=== PATIENT | male | born 1975 | race Caucasian/White ===

== ENCOUNTER 2025-04-18 21:04 | Observation (INO) ==
[2025-04-18 22:01] LABS: Hematocrit (blood only) 40.8 % (42.0-52.0); Hemoglobin 14.6 g/dL (14.0-18.0); Immature Granulocytes # (auto) 0.02 K/uL (0.01-0.20); Immature Granulocytes % (auto) 0.3 %; Mean Corpuscular Hemoglobin 31.9 pg (25.0-34.0); Mean Corpuscular Volume 89.3 fL (80.0-100.0); Platelet Count 220 K/uL (130-400); RDW Standard Deviation 41.4 fL (36.4-46.3); Red Blood Count 4.57 M/uL (4.70-6.10); White Blood Count 6.87 K/ul (4.8-10.8)
[2025-04-18 22:04] LABS: Alanine Aminotransferase 42.0 U/L (7-52); Albumin Globulin Ratio 1.2 (0.9-2); Albumin Level 4.3 gm/dl (3.4-5.0); Alkaline Phosphatase 73.0 U/L (34-104); Anion Gap 10.0 (3-11); Bilirubin,Total 1.0 mg/dl (0.2-1.0); Blood Urea Nitrogen 9.0 mg/dl (6-23); Calcium 9.5 mg/dl (8.6-10.3); Carbon Dioxide 24.0 mmol/L (21-32); Chloride 104.0 mmol/L (98-107); Creatinine Clr Calc Pharmacy 107.4 ml/min; Globulin 3.7 gm/dl (2.5-4.0); Glucose 98.0 mg/dl (70-99(Fasting)); Lipase 30.0 U/L (11-82); Potassium 3.7 mmol/L (3.5-5.1); Sodium 138.0 mmol/L (136-145); Total Protein 8.0 gm/dl (6.0-8.3)
--- NOTE | 2025-04-18 22:53 | Emergency Department Note ---
History of Present Illness General Chief complaint: Chest Pain Stated complaint: Chest Pain, Hypertension Time Seen by Provider: 04/18/25 21:22 History of Present Illness This 49-year-old male presents ER complaining of chest pain and shortness of breath today. No prior heart disease. He does not smoke. No leg pain or swelling. Patient denies fever, chills, cough, congestion, flulike illness. Home Medications Medication Instructions Recorded Confirmed Type atorvastatin 10 mg tablet 10 mg PO DAILY 01/23/23 04/18/25 History lisinopril 20 mg tablet 20 mg PO DAILY 01/23/23 04/18/25 History Allergies Allergy/AdvReac Type Severity Reaction Status Date / Time No Known Allergies Allergy Verified 01/23/23 14:56 Past Med/Surg History Problem List (Updated 04/19/25 @ 00:35 by Mariola Schuler PA-C) Lyme disease (Acute) Chest pain (Acute) Vitamin D deficiency Nephrolithiasis Hypertension Medical History (Updated 04/19/25 @ 00:35 by Mariola Schuler PA-C) Testicle cancer Surgical History (Updated 11/24/22 @ 19:01 by Cuong Garcia) History of orchiectomy, unilateral History of shoulder surgery History of appendectomy Social History (Updated 01/23/23 @ 15:00 by Monique Douglas LPN) Smoking Status: Never smoker Tobacco Type: Smokeless Tobacco (Dip or Chew) Age Started Using Tobacco: 15; Second Hand Exposure: Yes; Do You Dip or Chew Tobacco: Yes; Hx Alcohol Use: Yes Alcohol type: beer, wine and hard liquor Alcohol Intake Frequency Comment: 6 drinks a day Hx Substance Use: No Preferred Language: Colombian Communication Ability: Effective Beliefs That Will Affect Care: None marital status: Life Partner Current Living Situation Comment: w/ partner current occupational status: employed Feels Safe at Home: Yes Review of Systems A total of 10 systems reviewed and were otherwise negative Physical Exam Vital Signs Vital Signs - 24 hr 04/18/25 21:17 04/18/25 21:17 04/18/25 21:30 Temperature 36.9 C Temperature Source Oral Pulse Rate 84 85 Pulse Rate from SpO2 Sensor 84 Pulse Rhythm Regular Pulse Strength Normal Respiratory Rate 14 23 Respiratory Effort / Characteristics Non-Labored Spontaneous Non-Labored Spontaneous Respiratory Depth Normal Normal Respiratory Pattern Regular Blood Pressure 183/113 H Blood Pressure Mean 136 Blood Pressure Position Lying Pulse Oximetry 97 96 Oxygen Delivery Method Room Air Room Air Sepsis Recent Fever Within 48 Hours No Sepsis New/Unexplained Change in Mental Status N/A Sepsis Action Taken by Nursing No Action Required 04/18/25 21:40 04/18/25 21:45 04/18/25 21:47 Temperature Temperature Source Pulse Rate 81 82 Pulse Rate from SpO2 Sensor 81 Pulse Rhythm Pulse Strength Respiratory Rate 20 Respiratory Effort / Characteristics Respiratory Depth Respiratory Pattern Blood Pressure 167/110 H 167/110 H Blood Pressure Mean 129 122 Blood Pressure Position Pulse Oximetry 97 Oxygen Delivery Method Sepsis Recent Fever Within 48 Hours Sepsis New/Unexplained Change in Mental Status Sepsis Action Taken by Nursing 04/18/25 21:47 04/18/25 21:47 04/18/25 22:00 Temperature Temperature Source Pulse Rate 79 Pulse Rate from SpO2 Sensor 78 Pulse Rhythm Pulse Strength Respiratory Rate 23 Respiratory Effort / Characteristics Respiratory Depth Respiratory Pattern Blood Pressure 167/110 H 167/110 H Blood Pressure Mean 122 122 Blood Pressure Position Pulse Oximetry 96 Oxygen Delivery Method Sepsis Recent Fever Within 48 Hours Sepsis New/Unexplained Change in Mental Status Sepsis Action Taken by Nursing 04/18/25 22:00 04/18/25 22:00 04/18/25 22:00 Temperature Temperature Source Pulse Rate Pulse Rate from SpO2 Sensor Pulse Rhythm Pulse Strength Respiratory Rate Respiratory Effort / Characteristics Respiratory Depth Respiratory Pattern Blood Pressure 170/109 H 170/109 H 170/109 H Blood Pressure Mean 123 123 123 Blood Pressure Position Pulse Oximetry Oxygen Delivery Method Sepsis Recent Fever Within 48 Hours Sepsis New/Unexplained Change in Mental Status Sepsis Action Taken by Nursing 04/18/25 22:00 04/18/25 22:00 04/18/25 22:30 Temperature Temperature Source Pulse Rate 74 Pulse Rate from SpO2 Sensor Pulse Rhythm Pulse Strength Respiratory Rate 17 Respiratory Effort / Characteristics Respiratory Depth Respiratory Pattern Blood Pressure 170/109 H 170/109 H Blood Pressure Mean 123 123 Blood Pressure Position Pulse Oximetry Oxygen Delivery Method Sepsis Recent Fever Within 48 Hours Sepsis New/Unexplained Change in Mental Status Sepsis Action Taken by Nursing 04/18/25 22:51 04/18/25 22:53 04/18/25 22:53 Temperature Temperature Source Pulse Rate 69 Pulse Rate from SpO2 Sensor 70 Pulse Rhythm Pulse Strength Respiratory Rate 20 Respiratory Effort / Characteristics Respiratory Depth Respiratory Pattern Blood Pressure 177/106 H 177/106 H Blood Pressure Mean 123 123 Blood Pressure Position Pulse Oximetry 97 Oxygen Delivery Method Sepsis Recent Fever Within 48 Hours Sepsis New/Unexplained Change in Mental Status Sepsis Action Taken by Nursing 04/18/25 22:53 04/18/25 22:53 04/18/25 22:53 Temperature Temperature Source Pulse Rate Pulse Rate from SpO2 Sensor Pulse Rhythm Pulse Strength Respiratory Rate Respiratory Effort / Characteristics Respiratory Depth Respiratory Pattern Blood Pressure 177/106 H 177/106 H 177/106 H Blood Pressure Mean 123 123 123 Blood Pressure Position Pulse Oximetry Oxygen Delivery Method Sepsis Recent Fever Within 48 Hours Sepsis New/Unexplained Change in Mental Status Sepsis Action Taken by Nursing 04/18/25 23:00 04/18/25 23:00 04/18/25 23:00 Temperature Temperature Source Pulse Rate Pulse Rate from SpO2 Sensor Pulse Rhythm Pulse Strength Respiratory Rate Respiratory Effort / Characteristics Respiratory Depth Respiratory Pattern Blood Pressure 156/105 H 156/105 H 156/105 H Blood Pressure Mean 122 122 122 Blood Pressure Position Pulse Oximetry Oxygen Delivery Method Sepsis Recent Fever Within 48 Hours Sepsis New/Unexplained Change in Mental Status Sepsis Action Taken by Nursing 04/18/25 23:00 04/18/25 23:00 04/18/25 23:30 Temperature Temperature Source Pulse Rate 73 66 Pulse Rate from SpO2 Sensor 71 66 Pulse Rhythm Pulse Strength Respiratory Rate 18 22 Respiratory Effort / Characteristics Respiratory Depth Respiratory Pattern Blood Pressure 156/105 H 156/105 H 166/100 H Blood Pressure Mean 122 122 122 Blood Pressure Position Pulse Oximetry 98 97 Oxygen Delivery Method Room Air Room Air Sepsis Recent Fever Within 48 Hours Sepsis New/Unexplained Change in Mental Status Sepsis Action Taken by Nursing 04/18/25 23:50 04/19/25 00:00 04/19/25 00:30 Temperature Temperature Source Pulse Rate 65 66 60 Pulse Rate from SpO2 Sensor 65 66 60 Pulse Rhythm Pulse Strength Respiratory Rate 20 16 20 Respiratory Effort / Characteristics Respiratory Depth Respiratory Pattern Blood Pressure 162/108 H 166/100 H 158/93 H Blood Pressure Mean 126 122 114 Blood Pressure Position Pulse Oximetry 97 95 97 Oxygen Delivery Method Room Air Room Air Room Air Sepsis Recent Fever Within 48 Hours Sepsis New/Unexplained Change in Mental Status Sepsis Action Taken by Nursing 04/19/25 01:00 Temperature Temperature Source Pulse Rate 67 Pulse Rate from SpO2 Sensor 68 Pulse Rhythm Pulse Strength Respiratory Rate 19 Respiratory Effort / Characteristics Respiratory Depth Respiratory Pattern Blood Pressure 183/114 H Blood Pressure Mean 137 Blood Pressure Position Pulse Oximetry 97 Oxygen Delivery Method Room Air Sepsis Recent Fever Within 48 Hours Sepsis New/Unexplained Change in Mental Status Sepsis Action Taken by Nursing VITALS: Vitals are noted on the nurse's note and reviewed by myself. Vital signs stable. GENERAL: Pleasant male, in no acute distress, nondiaphoretic, well-developed well-nourished. SKIN: Capillary reflex less than 2 seconds. HEENT: Normocephalic. PERRLA. EOMI. Nares patent. Mucous membranes moist. Neck is supple without nuchal rigidity. HEART: Regular rate and rhythm LUNGS: Clear to auscultation bilaterally without wheezes, rales or rhonchi. No retractions or accessory muscle use. ABDOMEN: Positive bowel sounds x 4. Normal tympanic percussion. Soft, nontender, without masses or organomegaly. Poe sign negative. No guarding or rebound tenderness. no CVA tenderness MUSCULOSKELETAL: No gross musculoskeletal defects. NEURO: Patient was alert and oriented to person place and time. No focal neurological deficits. Course Administered Medications Discontinued Medications Acetaminophen (Ofirmev) 1,000 mg in 100 mls @ 400 mls/hr IV NOW STA Stop: 04/19/25 00:05 Last Infusion: 04/19/25 00:22 Dose: Infused Documented By: Admin: 04/18/25 23:57 Dose: 400 mls/hr Documented By: ENMA Famotidine (Pepcid 20mg Iv Push) 20 mg in 5 mls @ 2.5 mls/min IV NOW STA Stop: 04/19/25 01:00 Last Admin: 04/19/25 01:05 Dose: 2.5 mls/min Documented By: ENMA Medical Decision Making Medical Records Attestation: I reviewed the patient's medical records. Home Medications Current Medication List: was personally reviewed by me Laboratory Data Attestation: I reviewed the patient's lab results. 04/18/25 21:18 04/18/25 21:18 Lab Results 04/18/25 04/18/25 Range/Units 21:18 23:00 WBC 6.87 (4.8-10.8) K/ul RBC 4.57 L (4.70-6.10) M/uL Hgb 14.6 (14.0-18.0) g/dL Hct 40.8 L (42.0-52.0) % MCV 89.3 (80.0-100.0) fL MCH 31.9 (25.0-34.0) pg MCHC 35.8 (32.0-36.0) g/dL RDW Std Deviation 41.4 (36.4-46.3) fL RDW Coeff of Daquan 12.7 (11.5-14.5) % Plt Count 220 (130-400) K/uL MPV 9.7 (9.4-12.4) fL Immature Gran % (Auto) 0.3 % Neut % (Auto) 68.6 % Lymph % (Auto) 20.8 % Hood % (Auto) 8.7 % Eos % (Auto) 1.0 % Baso % (Auto) 0.6 % Neut # (Auto) 4.71 (1.40-6.50) K/uL Lymph # (Auto) 1.43 (1.20-3.40) K/uL Hood # (Auto) 0.60 H (0.11-0.59) K/uL Eos # (Auto) 0.07 (0.00-0.50) K/uL Baso # (Auto) 0.04 (0.00-0.20) K/uL Immature Gran # (Auto) 0.02 (0.01-0.20) K/uL D-Dimer 190 (0-500) ug/L FEU Sodium 138 (136-145) mmol/L Potassium 3.7 (3.5-5.1) mmol/L Chloride 104 (98-107) mmol/L Carbon Dioxide 24 (21-32) mmol/L Anion Gap 10 (3-11) BUN 9 (6-23) mg/dl Creatinine 0.99 (0.6-1.4) mg/dl Est Cr Clr Drug Dosing 107.4 ml/min eGFR 92.80 BUN/Creatinine Ratio 9.1 L (10-20) Glucose 98 (70-99(Fasting)) mg/dl Calcium 9.5 (8.6-10.3) mg/dl Total Bilirubin 1.0 (0.2-1.0) mg/dl AST 45 H (13-39) U/L ALT 42 (7-52) U/L Alkaline Phosphatase 73 (34-104) U/L Troponin I High Sens 14.0 12.6 (0-20) pg/ml Total Protein 8.0 (6.0-8.3) gm/dl Albumin 4.3 (3.4-5.0) gm/dl Globulin 3.7 (2.5-4.0) gm/dl Albumin/Globulin Ratio 1.2 (0.9-2) Lipase 30 (11-82) U/L Lyme Disease Screen Equivocal H (Negative) Lyme Tier 2 IgG Confirm Positive H (Negative) Lyme Tier 2 IgM Confirm Negative (Negative) Imaging Data Attestation: I personally reviewed and interpreted this imaging study as follows: Radiologist's Impression: Chest X-Ray 04/18/25 21:20 Exam(s): XR CXR 1 VIEW EXAM: XR Chest, 1 View CLINICAL HISTORY: Reason for exam: Chest pain, nonspecific. TECHNIQUE: Frontal view of the chest. COMPARISON: No relevant prior studies available. FINDINGS: Lungs: No consolidation. No overt edema. Pleural space: No pleural effusion. No pneumothorax. Heart: Unremarkable. No cardiomegaly. IMPRESSION: Unremarkable chest x-ray. Electronically signed by: Steve Yoder MD 04/18/25 23:23 PM [facility] Narrative Prior records/ancillary studies reviewed. Triage Nursing notes reviewed. Additional history obtained from nursing. The patient's history was concerning for chest pain. Differential diagnosis: Etiologies such as cardiac ischemia, aortic dissection, pulmonary embolism, pneumonia, pneumothorax, musculoskeletal, infections, pericarditis, myocarditis, esophageal rupture, gastrointestinal, as well as others were entertained. Physical examination: As above. ER treatment provided: An order was placed for continuous cardiac monitoring. The monitor shows a rate of 60-100 with a sinus rhythm per my interpretation. Patient was observed EMS gave aspirin and nitroglycerin On reassessment the patient felt better. Diagnostic interpretation by me: #1 the electrocardiogram was negative for pathologic change. Ordered for chest pain EKG: Normal sinus, normal intervals, no acute ST-T wave changes. Impression normal sinus rhythm independently interpreted by myself I think arrhythmia is unlikely. EKG shows normal sinus rhythm with no interval abnormalities such as QT prolongation or WPW. There are no findings to suggest Brugada syndrome. Cardiac monitoring in the emergency department reveals no tachycardic or bradycardic dysrhythmia. Hypertrophic cardiomyopathy was considered but there are no clear historical elements pointing toward this. EKG is not suggestive. The QRS voltage is not extremely large and there are no suggestive Q waves. #2: EKG ordered for chest pain EKG: Normal sinus, T wave version noted in lead III. No ST elevation. Impression normal sinus rhythm with nonspecific T wave changes independent interpreted by myself The labs Independently Interpreted by myself revealed 2 negative troponins, negative D-dimer Patient requested a Lyme's test as he was worried he might have an acute infection. The equivocal screening test was positive and the acute phase reactant was negative. Patient had Lyme's in the summer so most likely the IgG is positive from this. Patient would like to follow-up with PCP for this and does not want to start doxycycline. Imaging studies: Chest x-ray with no acute consolidation, pneumothorax or free air per my independent interpretation HEART SCORE: Hx: high/mod/low suspicion: 0 ECG: ST depression/nonspecific changes/normal: 1 Age: Greater than 65/45-64/less than 45: 1 Risk factors: (Hypertension, hyperlipidemia, diabetes, coronary disease, tobacco use, cocaine use): 2 Troponin: Greater than 2 times normal limits/1-2 times normal limits/normal: 0 Total: 4 Consultation: Medicine was consulted and the case was discussed. Patient will be admitted to the medical service. Exam and history seen consistent chest pain with unclear etiology. Patient developed another episode of chest pain while at time of discharge. Repeat EKG still showed some subtle changes so patient was evaluated for admission. Medicine was consulted and the case is discussed. He will be evaluated for admission. Patient is agreeable. The chart was completed utilizing [employer]umistic Speech voice recognition software. Grammatical errors, random word insertions, pronoun errors, and incomplete sentences are an occassional consequence of this system due to software limitations, ambient noise, and hardware issues. Any formal questions or concerns about the content, text, or information contained within the body of this dictation should be directly addressed to the physician physician assistant for clarification. Impression & Plan Chest pain, Lyme disease Discharge Plan Visit Data Chief Complaint: Chest Pain Stated Complaint: Chest Pain, Hypertension ED Provider: Regulo Ramsey ED Midlevel Provider: Mariola Schuler Discharge Problem: Chest pain, Lyme disease Patient Disposition: Being Evaluated by Hospitalist Condition: Good Discharge Instructions Krames/Other Patient Handouts: ED [facility] Chest Pain Activity Restrictions/Additional Instructions: Ibuprofen(Motrin, Advil) may be used for fever or pain. Use 400mg every six hours as needed. Take with food. Avoid using more than 1600mg in a 24 hour period. Do not use 1600mg per day for more than three consecutive days without physician direction. Prolonged inappropriate use can lead to stomach upset or ulcers. (AND/OR) Acetaminophen(Tylenol) may be used for fever or pain. Use 1000mg every six hours as needed. Avoid using more than 3000mg in a 24 hour period. Rest and drink plenty of fluids as tolerated. Continue current medications. Avoid strenuous activities and anything that worsens your pain. Resume normal activities once your symptoms resolve. Return to the ER immediately for worsening or persistent chest pain, abdominal pain, vomiting, fevers, chest pains, difficulty breathing, worsening of your condition, or as needed. Follow up with your primary physician in 2-3 days for a recheck of your current condition. Forms Stand Alone Forms: Work/School Release (ED), Important Visit Information Prescriptions Prescriptions: No Action atorvastatin 10 mg tablet 10 mg PO DAILY lisinopril 20 mg tablet 20 mg PO DAILY Referrals Referrals: PCP,NO [Primary Care Provider] - Discharge Problem: Chest pain Qualifiers: Chest pain type: unspecified Qualified Code(s): R07.9 - Chest pain, unspecified
--- NOTE | 2025-04-18 23:24 | XRay Report ---
Exam(s): XR CXR 1 VIEW EXAM: XR Chest, 1 View CLINICAL HISTORY: Reason for exam: Chest pain, nonspecific. TECHNIQUE: Frontal view of the chest. COMPARISON: No relevant prior studies available. FINDINGS: Lungs: No consolidation. No overt edema. Pleural space: No pleural effusion. No pneumothorax. Heart: Unremarkable. No cardiomegaly. IMPRESSION: Unremarkable chest x-ray. Electronically signed by: Steve Yoder MD 04/18/25 23:23 PM
[2025-04-18 23:50] LABS: Lyme Screen Rflx Confirmation Equivocal (Negative)
[2025-04-18] MEDS: ACETAMINOPHEN 1,000 MG/100 ML VIAL IV STA (23:57)
[2025-04-19 00:32] LABS: Lyme Ab IgG 2nd Tier Confirm Positive (Negative)
[2025-04-19 00:33] LABS: Lyme Ab IgM 2nd Tier Confirm Negative (Negative)
[2025-04-19] MEDS: FAMOTIDINE 20MG IV PUSH 20 MG/5 ML SYR IV STA (01:05)
[2025-04-19] MEDS: NITROGLYCERIN SL 0.4 MG/TAB TAB SL PRN (01:15)
--- NOTE | 2025-04-19 03:59 | History & Physical Report ---
Date of Service April 19, 2025 Assessment & Plan (1) Chest pain: Plan: 49-year-old male with past medical history significant for hypertension, hyperlipidemia, metabolic syndrome, chews tobacco, testicular cancer status post left orchiectomy presents with chest pain. Patient woke up in the morning with chest pain. He took his blood pressure medication and his pain subsided. But his blood pressure is going up and down. At one point his blood pressure was in 190s when he decided come to the ER. In the ER his EKG and 2 sets of troponin negative and and was planned to discharge but patient again had some chest discomfort and we are called for admission. Patient says he is still has mild discomfort in the chest. Denies any headache. No runny nose or sore throat. Occasional dry cough. No shortness of breath. No nausea. No abdominal pain. Normal bowel and bladder movements. In January his PCP added amlodipine for blood pressure control. Patient was treated for Lyme disease in the summer. Patient asked ER to check for Lyme. Lyme Ig G came back positive but IgM negative. Patient to follow-up with PCP for confirmation of Lyme IgG meanwhile patient is okay to take doxycycline. Chest pain EKG no acute findings 2 sets of troponin negative Will follow serial cardiac enzymes and echo Observation med/telemetry Cardiac consult in a.m. for further recommendation Hypertension Seems uncontrolled Continue home amlodipine, lisinopril and hydrochlorothiazide iv labetalol prn. required a dose of iv labetalol Will monitor Hyperlipidemia On statin Chews tobacco Counseling Alcoholism Drinks 2-4 beers daily Says he wont get alcohol withdrawal Will give a dose of IV thiamine and folic acid Counseling will monitor Lyme's disease Treated in the summer Currently Lyme test IgM. negative but IgG positive Have to wait for confirmation Follow-up with PCP Meanwhile empiric doxycycline DVT prophylaxis SCD Disposition Observation med/telemetry Full code. History of Present Illness Chief Complaint: Chest pain Primary Care Provider: NO PCP 49-year-old male with past medical history significant for hypertension, hyperlipidemia, metabolic syndrome, chews tobacco, testicular cancer status post left orchiectomy presents with chest pain. Patient woke up in the morning with chest pain. He took his blood pressure medication and his pain subsided. But his blood pressure is going up and down. At one point his blood pressure was in 190s when he decided come to the ER. In the ER his EKG and 2 sets of troponin negative and and was planned to discharge but patient again had some chest discomfort and we are called for admission. Patient says he is still has mild discomfort in the chest. Denies any headache. No runny nose or sore throat. Occasional dry cough. No shortness of breath. No nausea. No abdominal pain. Normal bowel and bladder movements. In January his PCP added amlodipine for blood pressure control. Patient was treated for Lyme disease in the summer. Patient asked ER to check for Lyme. Lyme Ig G came back positive but IgM negative. Patient to follow-up with PCP for confirmation of Lyme IgG meanwhile patient is okay to take doxycycline. Past medical history. As mentioned above. Past surgical history. Cardiac cath in 2013. Partial orchiectomy. Appendectomy. Social history. Chews tobacco. Alcohol 2-4 beers every day. No drug use. Family history. Father had prostate cancer. Hypertension. Mother had breast cancer. Diabetes. Sister had breast cancer. Brother has hypertension. Allergies Allergy/AdvReac Type Severity Reaction Status Date / Time No Known Allergies Allergy Verified 01/23/23 14:56 Home Medications Medication Instructions Recorded Confirmed Type amlodipine 2.5 mg tablet 2.5 mg PO DAILY 04/19/25 04/19/25 History atorvastatin 20 mg tablet 20 mg PO DAILY 04/19/25 04/19/25 History hydrochlorothiazide 25 mg tablet 25 mg PO DAILY 04/19/25 04/19/25 History lisinopril 40 mg tablet 40 mg PO DAILY 04/19/25 04/19/25 History Past Med/Surg History Problem List (Updated 04/19/25 @ 00:35 by Mariola Schuler PA-C) Lyme disease (Acute) Chest pain (Acute) Vitamin D deficiency Nephrolithiasis Hypertension Medical History (Updated 04/19/25 @ 00:35 by Mariola Schuler PA-C) Testicle cancer Surgical History (Updated 11/24/22 @ 19:01 by Cuong Garcia) History of orchiectomy, unilateral History of shoulder surgery History of appendectomy Social History (Updated 01/23/23 @ 15:00 by Monique Douglas LPN) Smoking Status: Never smoker Tobacco Type: Smokeless Tobacco (Dip or Chew) Age Started Using Tobacco: 15; Second Hand Exposure: No; Do You Dip or Chew Tobacco: Yes; Tobacco Cessation Education Requested by Patient: No Hx Alcohol Use: Yes Alcohol type: beer, wine and hard liquor Alcohol Intake Frequency Comment: 6 drinks a day Hx Substance Use: No Preferred Language: Cypriot Communication Ability: Effective 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 ENT- oropharynx clear Neck- supple, no JVD. Lungs- clear to auscultation no wheezing or crackles. Heart- regular rhythm; no murmur, no gallop. Abdomen- normal bowel sounds, soft, nontender, no distension. Extremities- no pretibial edema, no erythema seen Neuro- alert, oriented PERRL, no facial palsy; no dysarthria; moves extremities. Results & Data Results & Data Vital Signs (Past 12 Hours) Vital Signs Temp Pulse Resp BP Pulse Ox O2 Del Method 04/19/25 03:00 54 L 17 141/90 H 96 Room Air 04/19/25 02:30 59 L 18 159/98 H 97 Room Air 04/19/25 02:00 62 20 157/98 H 98 Room Air 04/19/25 01:30 67 23 161/107 H 96 Room Air 04/19/25 01:25 67 21 163/98 H 96 Room Air 04/19/25 01:20 77 16 157/97 H 96 Room Air 04/19/25 01:15 66 22 181/117 H 98 Room Air 04/19/25 01:03 67 19 183/114 H 98 Room Air 04/19/25 01:00 67 19 183/114 H 97 Room Air 04/19/25 00:30 60 20 158/93 H 97 Room Air 04/19/25 00:00 66 16 166/100 H 95 Room Air 04/18/25 23:50 65 20 162/108 H 97 Room Air 04/18/25 23:30 66 22 166/100 H 97 Room Air 04/18/25 23:00 156/105 H 12/29/25 23:00 73 18 156/105 H 98 Room Air 04/18/25 23:00 156/105 H 04/18/25 23:00 156/105 H 04/18/25 23:00 156/105 H 04/18/25 22:53 177/106 H 04/18/25 22:53 177/106 H 04/18/25 22:53 177/106 H 04/18/25 22:53 177/106 H 04/18/25 22:53 177/106 H 04/18/25 22:51 69 20 97 04/18/25 22:30 74 17 04/18/25 22:00 170/109 H 04/18/25 22:00 170/109 H 04/18/25 22:00 170/109 H 04/18/25 22:00 170/109 H 04/18/25 22:00 170/109 H 04/18/25 22:00 79 23 96 04/18/25 21:47 167/110 H 04/18/25 21:47 167/110 H 04/18/25 21:47 167/110 H 04/18/25 21:45 82 20 167/110 H 97 04/18/25 21:40 81 04/18/25 21:30 85 23 96 Room Air 04/18/25 21:17 36.9 C 84 14 183/113 H 97 Room Air Diagnostic Findings Laboratory Results WBC 6.87 K/ul (4.8-10.8) 04/18/25 21:18 RBC 4.57 M/uL (4.70-6.10) L 04/18/25 21:18 Hgb 14.6 g/dL (14.0-18.0) 04/18/25 21:18 Hct 40.8 % (42.0-52.0) L 04/18/25 21:18 MCV 89.3 fL (80.0-100.0) 04/18/25 21:18 MCH 31.9 pg (25.0-34.0) 04/18/25 21:18 MCHC 35.8 g/dL (32.0-36.0) 04/18/25 21:18 RDW Std Deviation 41.4 fL (36.4-46.3) 04/18/25 21:18 RDW Coeff of Daquan 12.7 % (11.5-14.5) 04/18/25 21:18 Plt Count 220 K/uL (130-400) 04/18/25 21:18 MPV 9.7 fL (9.4-12.4) 04/18/25 21:18 Immature Gran % (Auto) 0.3 % 04/18/25 21:18 Neut % (Auto) 68.6 % 04/18/25 21:18 Lymph % (Auto) 20.8 % 04/18/25 21:18 White % (Auto) 8.7 % 04/18/25 21:18 Eos % (Auto) 1.0 % 04/18/25 21:18 Baso % (Auto) 0.6 % 04/18/25 21:18 Neut # (Auto) 4.71 K/uL (1.40-6.50) 04/18/25 21:18 Lymph # (Auto) 1.43 K/uL (1.20-3.40) 04/18/25 21:18 White # (Auto) 0.60 K/uL (0.11-0.59) H 04/18/25 21:18 Eos # (Auto) 0.07 K/uL (0.00-0.50) 04/18/25 21:18 Baso # (Auto) 0.04 K/uL (0.00-0.20) 04/18/25 21:18 Immature Gran # (Auto) 0.02 K/uL (0.01-0.20) 04/18/25 21:18 D-Dimer 190 ug/L FEU (0-500) 04/18/25 21:18 Sodium 138 mmol/L (136-145) 04/18/25 21:18 Potassium 3.7 mmol/L (3.5-5.1) 04/18/25 21:18 Chloride 104 mmol/L (98-107) 04/18/25 21:18 Carbon Dioxide 24 mmol/L (21-32) 04/18/25 21:18 Anion Gap 10 (3-11) 04/18/25 21:18 BUN 9 mg/dl (6-23) 04/18/25 21:18 Creatinine 0.99 mg/dl (0.6-1.4) 04/18/25 21:18 Est Cr Clr Drug Dosing 107.4 ml/min 04/18/25 21:18 eGFR 92.80 04/18/25 21:18 BUN/Creatinine Ratio 9.1 (10-20) L 04/18/25 21:18 Glucose 98 mg/dl (70-99(Fasting)) 04/18/25 21:18 Calcium 9.5 mg/dl (8.6-10.3) 04/18/25 21:18 Total Bilirubin 1.0 mg/dl (0.2-1.0) 04/18/25 21:18 AST 45 U/L (13-39) H 04/18/25 21:18 ALT 42 U/L (7-52) 04/18/25 21:18 Alkaline Phosphatase 73 U/L (34-104) 04/18/25 21:18 Troponin I High Sens 12.6 pg/ml (0-20) 04/18/25 23:00 Total Protein 8.0 gm/dl (6.0-8.3) 04/18/25 21:18 Albumin 4.3 gm/dl (3.4-5.0) 04/18/25 21:18 Globulin 3.7 gm/dl (2.5-4.0) 04/18/25 21:18 Albumin/Globulin Ratio 1.2 (0.9-2) 04/18/25 21:18 Lipase 30 U/L (11-82) 04/18/25 21:18 Lyme Disease Screen Equivocal (Negative) H 04/18/25 21:18 Lyme Tier 2 IgG Confirm Positive (Negative) H 04/18/25 21:18 Lyme Tier 2 IgM Confirm Negative (Negative) 04/18/25 21:18 Impressions Chest X-Ray 04/18/25 21:20 Exam(s): XR CXR 1 VIEW EXAM: XR Chest, 1 View CLINICAL HISTORY: Reason for exam: Chest pain, nonspecific. TECHNIQUE: Frontal view of the chest. COMPARISON: No relevant prior studies available. FINDINGS: Lungs: No consolidation. No overt edema. Pleural space: No pleural effusion. No pneumothorax. Heart: Unremarkable. No cardiomegaly. IMPRESSION: Unremarkable chest x-ray. Electronically signed by: Steve Yoder MD 04/18/25 23:23 PM ECG Additional Comments: ECG normal sinus rhythm rate 65. Nonspecific ST abnormality. QTc 434 Code Status & VTE Plan VTE Prophylaxis Plan VTE Prophylaxis will be ordered: Yes (1) Chest pain Chest pain type: unspecified Qualified Code(s): R07.9 - Chest pain, unspecified
[2025-04-19] MEDS: FOLIC ACID 1 MG in SYRINGE 9.8 ML IV STA (04:40)
[2025-04-19] MEDS: THIAMINE HCL 100 MG in SYRINGE 9 ML IV STA (04:43)
[2025-04-19] MEDS ORDERED: ACETAMINOPHEN 325 MG TAB PO PRN (05:39)
[2025-04-19] MEDS ORDERED: NITROGLYCERIN SL 0.4 MG/TAB TAB SL PRN (05:39)
[2025-04-19] MEDS ORDERED: LABETALOL HCL IV 5 MG/ML 20ML IV PRN (05:59)
[2025-04-19] MEDS: LABETALOL HCL IV 5 MG/ML 20ML IV STA (06:12)
[2025-04-19] MEDS: CEROVITE ADV FORMULA TAB PO SCH (07:24)
[2025-04-19] MEDS: DOXYCYCLINE HYCLATE 100 MG CAP PO SCH (07:24)
[2025-04-19] MEDS: hydroCHLOROthiazide 25 MG TAB PO SCH (07:26)
[2025-04-19] MEDS: ATORVASTATIN 20 MG TAB PO SCH (07:26)
--- NOTE | 2025-04-19 10:07 | XCELERA ---
[id number]
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
[2025-04-19 11:04] LABS: Hematocrit (blood only) 40.8 % (42.0-52.0); Hemoglobin 14.2 g/dL (14.0-18.0); Immature Granulocytes # (auto) 0.01 K/uL (0.01-0.20); Immature Granulocytes % (auto) 0.2 %; Mean Corpuscular Hemoglobin 31.6 pg (25.0-34.0); Mean Corpuscular Volume 90.7 fL (80.0-100.0); Platelet Count 204 K/uL (130-400); RDW Standard Deviation 43.1 fL (36.4-46.3); Red Blood Count 4.50 M/uL (4.70-6.10); White Blood Count 5.35 K/ul (4.8-10.8)
[2025-04-19 11:21] LABS: Anion Gap 8.0 (3-11); Blood Urea Nitrogen 9.0 mg/dl (6-23); Calcium 9.5 mg/dl (8.6-10.3); Carbon Dioxide 26.0 mmol/L (21-32); Chloride 103.0 mmol/L (98-107); Creatinine Clr Calc Pharmacy 107.5 ml/min; Glucose 102.0 mg/dl (70-99(Fasting)); Magnesium 2.0 mg/dl (1.7-2.4); Potassium 3.8 mmol/L (3.5-5.1); Sodium 137.0 mmol/L (136-145)
[2025-04-19 11:46] VITALS: RESP 16; TEMP 98.1; O2SAT 97
--- NOTE | 2025-04-19 13:48 | Hospitalist Progress Note ---
Date of Service April 19, 2025 Assessment & Plan (1) Chest pain: Plan: 49-year-old male with past medical history significant for hypertension, hyperlipidemia, metabolic syndrome, chews tobacco, testicular cancer status post left orchiectomy presents with chest pain. Patient woke up in the morning with chest pain. He took his blood pressure medication and his pain subsided. But his blood pressure is going up and down. At one point his blood pressure was in 190s when he decided come to the ER. In the ER his EKG and 2 sets of troponin negative and and was planned to discharge but patient again had some chest discomfort and we are called for admission. Patient says he is still has mild discomfort in the chest. Denies any headache. No runny nose or sore throat. Occasional dry cough. No shortness of breath. No nausea. No abdominal pain. Normal bowel and bladder movements. In January his PCP added amlodipine for blood pressure control. Patient was treated for Lyme disease in the summer. Patient asked ER to check for Lyme. Lyme Ig G came back positive but IgM negative. Patient to follow-up with PCP for confirmation of Lyme IgG meanwhile patient is okay to take doxycycline. Atypical chest pain Troponin negative ECHO: EF 60 to 65%. Grade 1 diastolic dysfunction. Mild concentric LVH. Mild mitral regurgitation. Left ventricular wall motion normal. Appreciate cardiology input Advised to get stress test as outpatient Hypertension Currently on amlodipine, hydrochlorothiazide, lisinopril Adjust medications as recommended by cardiology Monitor blood pressure Acute bronchitis Abnormal Lyme's Test: IgG positive, IgM negative --CXR: Unremarkable chest x-ray. 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 Admission and Anticipated Discharge Date Admission Date: April 19, 2025 Subjective Patient is seen and examined at bedside Reports transient chest pain this morning which resolved Denies any nausea, vomiting, shortness of breath, dizziness Noted to have minimal known expectorant cough today Review of Systems Review of Systems: All systems reviewed & are unremarkable except as noted in Subjective Physical Exam Physical Exam: Physical Exam: Vitals signs as noted above General Appearance:Moderately built and nourished, no apparent distress Head: normocephalic, Atraumatic Eyes: normal inspection, EOMI Neck: supple, Trachea midline Respiratory/Chest: Normal breath sounds, CTA, No accessory muscle use Cardiovascular: S1, S2, No murmur Abdomen/GI:Soft, Non tender, Bowel sounds present Extremities/Musculoskeletal:normal inspection, no edema Neurologic/Psych:AAOX3, grossly no focal neurological deficits Skin: normal color, warm Results & Data Results & Data Vital Signs (Past 12 Hours) Vital Signs Temp Pulse Pulse Resp BP BP Pulse Ox 04/19/25 11:45 36.7 C 53 L 16 157/97 H 97 04/19/25 08:00 66 04/19/25 07:22 36.6 C 63 18 163/96 H 96 04/19/25 06:31 61 168/92 H 04/19/25 06:12 75 187/109 H 04/19/25 05:41 04/19/25 05:41 36.8 C 75 14 187/109 H 98 04/19/25 05:39 04/19/25 04:53 36.7 C 04/19/25 04:30 53 L 20 162/99 H 94 04/19/25 04:00 60 19 157/100 H 97 04/19/25 03:30 61 16 148/91 H 97 04/19/25 03:00 54 L 17 141/90 H 96 04/19/25 02:30 59 L 18 159/98 H 97 04/19/25 02:00 62 20 157/98 H 98 Pulse Ox O2 Del Method O2 Del Method 04/19/25 11:45 Room Air 04/19/25 08:00 04/19/25 07:22 Room Air 04/19/25 06:31 04/19/25 06:12 04/19/25 05:41 Room Air 04/19/25 05:41 Room Air 04/19/25 05:39 98 Room Air 04/19/25 04:53 04/19/25 04:30 Room Air 04/19/25 04:00 Room Air 04/19/25 03:30 Room Air 04/19/25 03:00 Room Air 04/19/25 02:30 Room Air 04/19/25 02:00 Room Air Laboratory Results Short CBC 04/18/25 04/19/25 Range/Units 21:18 10:03 WBC 6.87 5.35 (4.8-10.8) K/ul Hgb 14.6 14.2 (14.0-18.0) g/dL Hct 40.8 L 40.8 L (42.0-52.0) % Plt Count 220 204 (130-400) K/uL BMP 04/18/25 04/19/25 21:18 10:03 Sodium 138 137 Potassium 3.7 3.8 Chloride 104 103 Carbon Dioxide 24 26 BUN 9 9 Creatinine 0.99 0.98 Glucose 98 102 H Calcium 9.5 9.5 Liver Function 04/18/25 Range/Units 21:18 Total Bilirubin 1.0 (0.2-1.0) mg/dl AST 45 H (13-39) U/L ALT 42 (7-52) U/L Alkaline Phosphatase 73 (34-104) U/L Albumin 4.3 (3.4-5.0) gm/dl (1) Chest pain Chest pain type: unspecified Qualified Code(s): R07.9 - Chest pain, unspecified
--- NOTE | 2025-04-19 15:18 | Electrocardiogram Report ---
Test Reason : Blood Pressure : */* mmHG Vent. Rate : 79 BPM Atrial Rate : 79 BPM P-R Int : 170 ms QRS Dur : 94 ms QT Int : 358 ms P-R-T Axes : 12 -2 -6 degrees QTcB Int : 410 ms Normal sinus rhythm Normal ECG No previous ECGs available Confirmed by Marvel Winter ([id number]) on 04/19/2025 3:17:57 PM Referred By: REFERRED SELF Confirmed By: Marvel Winter
--- NOTE | 2025-04-19 15:19 | Electrocardiogram Report ---
Test Reason : Blood Pressure : */* mmHG Vent. Rate : 71 BPM Atrial Rate : 71 BPM P-R Int : 174 ms QRS Dur : 90 ms QT Int : 402 ms P-R-T Axes : 22 11 -5 degrees QTcB Int : 436 ms Normal sinus rhythm Normal ECG When compared with ECG of 19-Apr-2025 00:56, (unconfirmed) No significant change was found Confirmed by Marvel Winter ([id number]) on 04/19/2025 3:19:22 PM Referred By: REFERRED SELF Confirmed By: Marvel Winter
--- NOTE | 2025-04-19 15:19 | Electrocardiogram Report ---
Test Reason : Blood Pressure : */* mmHG Vent. Rate : 65 BPM Atrial Rate : 65 BPM P-R Int : 170 ms QRS Dur : 94 ms QT Int : 418 ms P-R-T Axes : 31 9 1 degrees QTcB Int : 434 ms Normal sinus rhythm Nonspecific ST abnormality Abnormal ECG When compared with ECG of 18-Apr-2025 21:17, (unconfirmed) No significant change was found Confirmed by Marvel Winter ([id number]) on 04/19/2025 3:19:18 PM Referred By: REFERRED SELF Confirmed By: Marvel Winter
[2025-04-19 15:22] VITALS: BP 147/83
--- NOTE | 2025-04-19 16:46 | Discharge Summary ---
Date of Service April 19, 2025 Admission HPI Per Admitting Provider 49-year-old male with past medical history significant for hypertension, hyperlipidemia, metabolic syndrome, chews tobacco, testicular cancer status post left orchiectomy presents with chest pain. Patient woke up in the morning with chest pain. He took his blood pressure medication and his pain subsided. But his blood pressure is going up and down. At one point his blood pressure was in 190s when he decided come to the ER. In the ER his EKG and 2 sets of troponin negative and and was planned to discharge but patient again had some chest discomfort and we are called for admission. Patient says he is still has mild discomfort in the chest. Denies any headache. No runny nose or sore throat. Occasional dry cough. No shortness of breath. No nausea. No abdominal pain. Normal bowel and bladder movements. In January his PCP added amlodipine for blood pressure control. Patient was treated for Lyme disease in the summer. Patient asked ER to check for Lyme. Lyme Ig G came back positive but IgM negative. Patient to follow-up with PCP for confirmation of Lyme IgG meanwhile patient is okay to take doxycycline. Past medical history. As mentioned above. Past surgical history. Cardiac cath in 2013. Partial orchiectomy. Appendectomy. Social history. Chews tobacco. Alcohol 2-4 beers every day. No drug use. Family history. Father had prostate cancer. Hypertension. Mother had breast cancer. Diabetes. Sister had breast cancer. Brother has hypertension. Admission Exam Per Admitting Provider General- Not in distress Head- atraumatic Eyes- PERRL. ENT- oropharynx clear Neck- supple, no JVD. Lungs- clear to auscultation no wheezing or crackles. Heart- regular rhythm; no murmur, no gallop. Abdomen- normal bowel sounds, soft, nontender, no distension. Extremities- no pretibial edema, no erythema seen Neuro- alert, oriented PERRL, no facial palsy; no dysarthria; moves extremities. Principal Diagnosis Atypical chest pain Hypertension Acute bronchitis Discharge Data Allergies Allergy/AdvReac Type Severity Reaction Status Date / Time No Known Allergies Allergy Verified 01/23/23 14:56 Consultations 04/19/25 01:08 ED Decision to Admit Stat 04/19/25 08:00 Consult Cardiology Routine Procedures Performed Laboratory Results WBC 5.35 K/ul (4.8-10.8) 04/19/25 10:03 RBC 4.50 M/uL (4.70-6.10) L 04/19/25 10:03 Hgb 14.2 g/dL (14.0-18.0) 04/19/25 10:03 Hct 40.8 % (42.0-52.0) L 04/19/25 10:03 MCV 90.7 fL (80.0-100.0) 04/19/25 10:03 MCH 31.6 pg (25.0-34.0) 04/19/25 10:03 MCHC 34.8 g/dL (32.0-36.0) 04/19/25 10:03 RDW Std Deviation 43.1 fL (36.4-46.3) 04/19/25 10:03 RDW Coeff of Daquan 13.2 % (11.5-14.5) 04/19/25 10:03 Plt Count 204 K/uL (130-400) 04/19/25 10:03 MPV 9.7 fL (9.4-12.4) 04/19/25 10:03 Immature Gran % (Auto) 0.2 % 04/19/25 10:03 Neut % (Auto) 65.2 % 04/19/25 10:03 Lymph % (Auto) 23.2 % 04/19/25 10:03 Sherman % (Auto) 9.2 % 04/19/25 10:03 Eos % (Auto) 1.3 % 04/19/25 10:03 Baso % (Auto) 0.9 % 04/19/25 10:03 Neut # (Auto) 3.49 K/uL (1.40-6.50) 04/19/25 10:03 Lymph # (Auto) 1.24 K/uL (1.20-3.40) 04/19/25 10:03 Sherman # (Auto) 0.49 K/uL (0.11-0.59) 04/19/25 10:03 Eos # (Auto) 0.07 K/uL (0.00-0.50) 04/19/25 10:03 Baso # (Auto) 0.05 K/uL (0.00-0.20) 04/19/25 10:03 Immature Gran # (Auto) 0.01 K/uL (0.01-0.20) 04/19/25 10:03 D-Dimer 190 ug/L FEU (0-500) 04/18/25 21:18 Sodium 137 mmol/L (136-145) 04/19/25 10:03 Potassium 3.8 mmol/L (3.5-5.1) 04/19/25 10:03 Chloride 103 mmol/L (98-107) 04/19/25 10:03 Carbon Dioxide 26 mmol/L (21-32) 04/19/25 10:03 Anion Gap 8 (3-11) 04/19/25 10:03 BUN 9 mg/dl (6-23) 04/19/25 10:03 Creatinine 0.98 mg/dl (0.6-1.4) 04/19/25 10:03 Est Cr Clr Drug Dosing 107.5 ml/min 04/19/25 10:03 eGFR 93.94 04/19/25 10:03 BUN/Creatinine Ratio 9.2 (10-20) L 04/19/25 10:03 Glucose 102 mg/dl (70-99(Fasting)) H 04/19/25 10:03 Calcium 9.5 mg/dl (8.6-10.3) 04/19/25 10:03 Magnesium 2.0 mg/dl (1.7-2.4) 04/19/25 10:03 Total Bilirubin 1.0 mg/dl (0.2-1.0) 04/18/25 21:18 AST 45 U/L (13-39) H 04/18/25 21:18 ALT 42 U/L (7-52) 04/18/25 21:18 Alkaline Phosphatase 73 U/L (34-104) 04/18/25 21:18 Troponin I High Sens 7.5 pg/ml (0-20) D 04/19/25 10:03 Total Protein 8.0 gm/dl (6.0-8.3) 04/18/25 21:18 Albumin 4.3 gm/dl (3.4-5.0) 04/18/25 21:18 Globulin 3.7 gm/dl (2.5-4.0) 04/18/25 21:18 Albumin/Globulin Ratio 1.2 (0.9-2) 04/18/25 21:18 Lipase 30 U/L (11-82) 04/18/25 21:18 Lyme Disease Screen Equivocal (Negative) H 04/18/25 21:18 Lyme Tier 2 IgG Confirm Positive (Negative) H 04/18/25 21:18 Lyme Tier 2 IgM Confirm Negative (Negative) 04/18/25 21:18 Impressions Chest X-Ray 04/18/25 21:20 Exam(s): XR CXR 1 VIEW EXAM: XR Chest, 1 View CLINICAL HISTORY: Reason for exam: Chest pain, nonspecific. TECHNIQUE: Frontal view of the chest. COMPARISON: No relevant prior studies available. FINDINGS: Lungs: No consolidation. No overt edema. Pleural space: No pleural effusion. No pneumothorax. Heart: Unremarkable. No cardiomegaly. IMPRESSION: Unremarkable chest x-ray. Electronically signed by: Steve Yoder MD 04/18/25 23:23 PM Hospital Course (1) Chest pain: 49-year-old male with past medical history significant for hypertension, hyperlipidemia, metabolic syndrome, chews tobacco, testicular cancer status post left orchiectomy presents with chest pain. Patient woke up in the morning with chest pain. He took his blood pressure medication and his pain subsided. But his blood pressure is going up and down. At one point his blood pressure was in 190s when he decided come to the ER. In the ER his EKG and 2 sets of troponin negative and and was planned to discharge but patient again had some chest discomfort and we are called for admission. Patient says he is still has mild discomfort in the chest. Denies any headache. No runny nose or sore throat. Occasional dry cough. No shortness of breath. No nausea. No abdominal pain. Normal bowel and bladder movements. In January his PCP added amlodipine for blood pressure control. Patient was treated for Lyme disease in the summer. Patient asked ER to check for Lyme. Lyme Ig G came back positive but IgM negative. Patient to follow-up with PCP for confirmation of Lyme IgG meanwhile patient is okay to take doxycycline. Atypical chest pain Troponin negative ECHO: EF 60 to 65%. Grade 1 diastolic dysfunction. Mild concentric LVH. Mild mitral regurgitation. Left ventricular wall motion normal. Started on aspirin 81 mg daily Continue atorvastatin 20 mg daily Appreciate cardiology input Advised to get stress test as outpatient Plan to discharge home today Hypertension Currently on amlodipine, hydrochlorothiazide, lisinopril Adjust medications as recommended by cardiology: Increase amlodipine to 5 mg daily, lisinopril changed to valsartan 320 mg daily, HCT changed to chlorthalidone 25 mg daily. Monitor blood pressure Acute bronchitis Abnormal Lyme's Test: IgG positive, IgM negative --CXR: Unremarkable chest x-ray. 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 Total Time Total Time Spent Total Time Spent (In Minutes): 54 minutes Discharge Plan Discharge Items Patient Disposition: Home - Self-Care Reason For Visit: CHEST PAIN Discharge Diagnosis: Atypical chest pain Hypertension Acute bronchitis Condition on Discharge: Good Activity: Per Instructions section Exercise/Sports: Gradually increase as tolerated Non-emergency contact: Primary Care Provider and Principal Cloud Architect Call non-emergency contact if: you have any medication questions, your symptoms worsen, your pain is concerning for you and you have a fever Follow-up/Referrals: Ashely Potts MD [Primary Care Provider] - (Date & Time 04/25/2025 9:00 AM Provider: Ashely Cobb MD [facility] ) Diet: Heart Healthy Addtl Attending Provider Instructions: -- Follow-up with your primary care physician on 04/25/2025 9:00 AM as scheduled - 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 Monitor your blood pressure regularly as advised. Discuss with your physician for further adjustment of medications as needed. -- Complete the antibiotic course doxycycline as prescribed --Quit drinking alcohol as advised --Start taking aspirin 81 mg daily Seek immediate medical attention if your symptoms reoccur or worsen Please review medication list provided on discharge for any medication changes as instructed. Please call if you have any questions or problems. You can reach a [facility] hospitalist on duty at [facility] 24 hours a day by calling [phone] Pending Studies at Discharge: No Stand-Alone Forms: My [facility] [employer], Smoking Cessation Medications and DC Order Prescriptions: New doxycycline hyclate 100 mg Capsule 100 mg PO BID Qty: 9 0RF amlodipine 5 mg Tablet 5 mg PO DAILY Qty: 30 1RF valsartan 320 mg tablet 320 mg PO QAM Qty: 30 1RF chlorthalidone 25 mg Tablet 25 mg PO QAM Qty: 30 1RF aspirin 81 mg tablet 81 mg PO DAILY Qty: 30 1RF Continued atorvastatin 20 mg tablet 20 mg PO DAILY Discontinued amlodipine 2.5 mg tablet 2.5 mg PO DAILY hydrochlorothiazide 25 mg tablet 25 mg PO DAILY lisinopril 40 mg tablet 40 mg PO DAILY Discharge Orders: Discharge Order (Routine); Ordered 04/19/25 Ordered By: Rajesh Ibarra Admission Data Admit Date/Time: 04/19/25 03:48 Attending Provider: Rajesh Ibarra Admit Provider: Mike Tran Primary Care Provider: Ashely Potts Other Providers: Mike Tran; Vladislav Bolanos
[2025-04-19 17:15] LABS: Influenza A virus by PCR Negative (Neg); Influenza B virus by PCR Negative (Neg); SARS CoV2 RNA(COVID-19) Ceph NEGATIVE (Negative)
[2025-04-19 18:36] VITALS: PULSE 54
[2025-04-20] MEDS ORDERED: VALSARTAN 80 MG TAB PO SCH (09:00)
[2025-04-20] MEDS ORDERED: FOLIC ACID 400 MCG TAB PO SCH (09:00)
[2025-04-20] MEDS ORDERED: THIAMINE HCL 100 MG TAB PO SCH (09:00)
[2025-04-20] MEDS ORDERED: CHLORTHALIDONE 25 MG TAB PO SCH (09:00)
== END 2025-04-19 18:20 | disposition home or self-care (01) ==
LOC: ED 21:04 → 2W 21:04